=== PATIENT | female | born 1995 | race Caucasian/White ===

== ENCOUNTER 2022-03-06 09:42 | Inpatient (IN) ==
[2022-03-06] MEDS ORDERED: LIDOCAINE 1% LOCAL 20 ML VIAL INFIL PRN (10:40)
[2022-03-06] MEDS ORDERED: PENICILLIN G POTASSIUM 6 MU in DEXTROSE 5% 250 ML IV STA (10:40)
[2022-03-06] MEDS ORDERED: OXYTOCIN 30 UNITS/500 ML BAG IV PRN ×3 (10:40→15:56)
[2022-03-06] MEDS ORDERED: LACTATED RINGER'S 1,000 ML IV PRN (10:40)
[2022-03-06] MEDS ORDERED: Patient's ALLERGY Info needs ENTERED SCH (10:55)
[2022-03-06 11:20] LABS: Hematocrit (blood only) 34.9 % (34.1-44.9); Hemoglobin 12.1 g/dl (12.0-16.0); Mean Corpuscular Hemoglobin 29.7 pg (25.0-34.0); Mean Corpuscular Hgb Conc 34.7 g/dL (32.0-36.0); Mean Corpuscular Volume 85.5 fL (80.0-100.0); Mean Platelet Volume 12.3 fL (9.4-12.3); Platelet Count 192 K/uL (130-400); RDW Coefficient of Variation 13.8 % (11.5-14.5); RDW Standard Deviation 42.1 fL (36.4-46.3); Red Blood Count 4.08 M/uL (3.93-5.22); White Blood Count 10.18 K/ul (4.8-10.8)
[2022-03-06] MEDS: PENICILLIN G POTASSIUM 3 MU in DEXTROSE 5% 100 ML IV SCH ×2 (14:47)
[2022-03-06] MEDS ORDERED: METHYLERGONOVINE MALEATE 0.2 MG/ML AMP ONE (15:53)
[2022-03-06] MEDS ORDERED: ACETAMINOPHEN 325 MG TAB PO PRN (15:56)
[2022-03-06] MEDS ORDERED: IBUPROFEN 600 MG TAB PO PRN (15:56)
[2022-03-06] MEDS ORDERED: bisacodyL 10 MG SUPP PR PRN (15:56)
[2022-03-06] MEDS ORDERED: ACETAMINOPHEN W/CODEINE #3 1 TAB PO PRN (15:56)
[2022-03-06] MEDS ORDERED: DIPHTHERIA/TETANUS/PERTUSSIS 0.5 ML SYR/VIAL IM ONE (15:56)
[2022-03-06] MEDS ORDERED: METHYLERGONOVINE MALEATE 0.2 MG/ML AMP IM ONE (15:56)
[2022-03-06] MEDS ORDERED: HYDROCORTISONE ACETATE 25 MG SUPP PR PRN (15:56)
[2022-03-06] MEDS ORDERED: oxyCODONE/ACETAMINOPHEN 5mg/325mg TAB PO PRN (15:56)
--- NOTE | 2022-03-06 16:21 | Delivery Summary ---
DATE OF PROCEDURE: 03/06/2022 PROCEDURE: Vaginal delivery. DESCRIPTION OF PROCEDURE: Patient came to the hospital in active labor. She was having some bloody vaginal discharge. She was about 36 weeks and 3 days. First check on the labor floor, she was 6 cm, membranes were bulging. We did a beta strep culture. Since we did not get the results, we gave her 6 million units of penicillin. After we gave her 6 million units of penicillin. Membranes were ruptu red surgically. Fluid was clear. She had a spontaneous unstimulated labor. She was getting her sec ond dose of 3 million units, was about two-thirds in when she started to crown. She pushed out a heidi e via direct occiput anterior position over an intact perineum. There was a nuchal cord that was reduced around the head. The infant was delivered without difficulty. The cord was allowed to p ulse for 1 minute while the mother breathed oxygen and this pinked the baby up real nice and she star steven to cry. Cord was then, after 1 minute was clamped, cut by the father. Cord blood was taken. Wi th IV Pitocin running, the placenta was removed intact. Inspection of the perineum revealed a lacera tion of the right labia minora and a shallow sulcus on the right side. The sulcus was repaired by fin ding the apex of the defect and approximated the vaginal mucosa out and to beyond the hymenal ring. A deep suture was used to approximate the bulbocavernosus muscle. A separate deep suture was used to approximate the perineal body. A running subcuticular suture was used to approximate the perineal s kin edges. Then, the labia was approximated by infiltrating with local and then doing a running Vicr yl suture starting on the outside and running to the vaginal opening. Following this, hemostasis was good. She also received Methergine 0.2 IM. Estimated blood loss 200 mL. Apgars were deferred to [facility] nurses. The patient tolerated the procedure well. Job ID: [id number]
[2022-03-06] MEDS ORDERED: LABETALOL HCL 100 MG TAB PO ONE (17:07)
[2022-03-06] MEDS: BENZOCAINE 20% AER SPR 82.5 GM CAN EXT PRN (19:38)
[2022-03-06] MEDS: DOCUSATE SODIUM 100 MG CAP PO SCH (20:02)
[2022-03-06] MEDS: LABETALOL HCL 100 MG TAB PO SCH (20:02)
[2022-03-06] MEDS ORDERED: Nursing to Pharmacy Communication SCH (20:30)
[2022-03-07] MEDS: PRENATAL VITAMIN 1 TAB PO SCH (09:30)
[2022-03-07] MEDS: LABETALOL HCL 100 MG TAB PO SCH ×3 (09:30→22:06)
[2022-03-07] MEDS: DOCUSATE SODIUM 100 MG CAP PO SCH ×2 (09:30→22:06)
--- NOTE | 2022-03-07 15:58 | Obstetrical Progress Note ---
Date of Service March 07, 2022 Assessment & Plan Admission and Anticipated Discharge Date Admission Date: March 06, 2022 Subjective abdomen soft and non tender no calf tenderness ambulating well blood pressure under control on labetalol 100 mg tid vaginal bleeding scant hgb 12.1 Results & Data ([facility]) Vital Signs (Past 12 Hours) Vital Signs Temp Pulse Resp BP O2 Del Method 03/07/22 12:30 36.6 C 79 20 125/72 Room Air 03/07/22 07:30 36.6 C 79 20 131/83 Room Air
[2022-03-07] MEDS ORDERED: bisacodyL 5 MG TABEC PO SCH (20:00)
[2022-03-08 07:23] LABS: Hematocrit (blood only) 32.3 % (34.1-44.9); Hemoglobin 10.9 g/dl (12.0-16.0)
[2022-03-08] MEDS: DOCUSATE SODIUM 100 MG CAP PO SCH (08:05)
[2022-03-08] MEDS: BENZOCAINE 20% AER SPR 82.5 GM CAN EXT PRN (08:06)
[2022-03-08] MEDS: PRENATAL VITAMIN 1 TAB PO SCH (08:06)
--- NOTE | 2022-03-08 09:01 | Obstetrical Progress Note ---
Date of Service March 08, 2022 Assessment & Plan Admission and Anticipated Discharge Date Admission Date: March 06, 2022 Subjective abdomen soft and non tender no calf tenderness ambulating well blood pressure under control with labetalol 100 mg tid vaginal bleeding scant hgb 10.9 Results & Data ([facility]) Vital Signs (Past 12 Hours) Vital Signs Temp Pulse Resp BP Pulse Ox O2 Del Method 03/08/22 07:49 36.7 C 79 18 110/71 99 Room Air 03/07/22 23:45 36.5 C 87 18 128/78 99 Room Air
[2022-03-08] MEDS: LABETALOL HCL 100 MG TAB PO SCH (09:39)
== END 2022-03-08 12:26 | disposition home or self-care (01) | DRG 807 ==
LOC: OPB 09:42 → 4S1 09:44 → 4E2 19:40